=== PATIENT | female | born 1955 | race Caucasian/White ===

== ENCOUNTER 2023-12-16 14:33 | Outpatient (RCR) | payer OTHER, SELFPAY | END 2023-12-16 23:59 | disposition home or self-care (01) | LOC: RPT 14:33 | PROVIDERS: ATTENDING PHYSICIAN Family Medicine | DX: R53.1 Weakness (principal) | CPT/HCPCS: 97110; 97161; 97530 ==

== ENCOUNTER → 2024-01-24 09:05 | Outpatient (REF) | payer OTHER, SELFPAY | LOC: HWRAD 09:05 | PROVIDERS: ATTENDING PHYSICIAN Family Medicine | DX: Z13.820 Encounter for screening for osteoporosis (principal) | CPT/HCPCS: 77080 ==

== ENCOUNTER → 2025-01-01 07:13 | Outpatient (REF) | payer OTHER, SELFPAY | LOC: MRI 3T 07:13 | PROVIDERS: ATTENDING PHYSICIAN Family Medicine | DX: K86.2 Cyst of pancreas (principal) | CPT/HCPCS: 74183; A9575 ==

== ENCOUNTER 2025-04-03 22:29 | Inpatient (IN) | payer OTHER, SELFPAY ==
[2025-04-03 18:13] VITALS: BP 116/51
[2025-04-03 18:47] LABS: Hematocrit 43.6 % (37.0-47.0); Hemoglobin 15.0 g/dL (12.0-16.0); Mean Corp Hgb Conc. 34.4 g/dL (33.0-37.0); Mean Corpuscular Volume 89.9 fL (81.0-99.0); Nucleated Red Blood Cells % 0 %; Platelet Count 240 10^3/uL (130-400); Red Cell Dist. Width 13.4 % (11.5-14.5)
[2025-04-03 19:03] LABS: ALT (SGPT) 42 U/L (0-35); AST (SGOT) 98 U/L (14-36); Albumin 4.1 g/dl (3.5-5.0); Alkaline Phosphatase 67 U/L (38-126); Blood Urea Nitrogen 20 mg/dl (7-17); Calcium 10.1 mg/dl (8.4-10.2); Carbon Dioxide 29 mmol/L (22-30); Chloride 104 mmol/L (98-107); Estimated Creatinine Clearance 91 ml/min; Glucose 119 mg/dl (70-99); Potassium 4.2 mmol/L (3.5-5.1); Sodium 135 mmol/L (135-145); Total Protein 6.6 g/dl (6.3-8.2); eGFR > 60.00
--- NOTE | 2025-04-03 19:06 | ED.GENMED ---
History of Present Illness
<Nicole Noel DO - Last Filed: 04/03/25 20:17>
General
Chief Complaint: Weakness
Time Seen by Provider: 04/03/25 18:56
<STEVAN Corley Last Filed: 04/03/25 21:51>
General
Source: patient
Exam Limitations: none
History of Present Illness
History of Present Illness:
Yemercedes 69-year-old female presents from [facility] where she lives independently. She slid out of bed this morning secondary to generalized weakness. She has been on the floor all day. She brought here by EMS soaked in foul-smelling urine.
Patient was a limited historian but denied any significant injury from the fall she did note some bruising to the right knee. She denies headache chest pain or shortness of breath. No other complaints
Past History
<Lamberto Brownlee PA-C - Last Filed: 04/03/25 21:51>
Past History
ED Past Medical History: Cancer (breast with mastectomy and reconstructive sx. ), HTN, Hypercholesterolemia, NIDDM and Other (cellulitis )
ED Past Surgical History: Other (mastectomy and gastric bypass, breast reconstruction )
Social History
Tobacco: Non-smoker
Alcohol: None
Drug: None
Personal:
Living: with family
Employment: Employed
Family History
Family History: Other (non contributory ) and Adopted
Phy Exam
<Lamberto Brownlee PA-C - Last Filed: 04/03/25 21:51>
Physical Exam
Physical Exam:
General: Well-appearing female no acute distress
HEENT normal cephalic no obvious scalp abrasion or hematoma
Heart: Regular rate and rhythm
Lungs: Clear no wheeze
Abdomen is soft nontender
Musculoskeletal exam: The spine is nontender. She has ecchymosis and some tenderness over the anterior aspect of the right knee without obvious deformity
Course
<Nicole Noel, DO - Last Filed: 04/03/25 20:17>
Orders/Labs/Results
Orders:
Orders
04/03/25 18:40
CPK [Creatine Phosphokinase] Urgent
Complete Blood Count/With Diff Urgent
Comprehensive Metabolic Panel Urgent
04/03/25 19:05
CT Head W/o Iv Contrast Urgent
Comment:
Reason For Exam: fall
CR Knee- Right 4 Or More View* Urgent
Comment:
Reason For Exam: fall
04/03/25 19:28
0.9% Sodium Chloride 1000 ml [Nss] 1,000 ml IV BOLUS
04/03/25 19:49
Urinalysis Reflex To Culture Urgent
Date Specimen was Collected: 04/03/25
Time Specimen was Collected: 19:47
Urine Microscopic Reflex Cult Urgent
Urine Culture Urgent
MICHELLE Source: U
Specimen Description:
Date Specimen was Collected: 04/03/25
Time Specimen was Collected: 19:47
04/03/25 20:11
Cefepime HCl [Maxipime] 1,000 mg IV NOW STA
04/03/25 20:50
Lactic Acid Urgent
Blood Culture Q30M
MICHELLE Source: Blood/Venous
Specimen Description:
04/03/25 20:57
Blood Culture Q30M
MICHELLE Source: Blood/Venous
Specimen Description:
04/03/25 21:37
Sterile Water [Sterile Water For Injection] 10 ml [facility]
04/03/25 21:47
Admit/Transfer Patient As Directed
Co-Sign Provider:
Level of Care: Inpatient admission
Assign to:: Medical/Surgical
Physician / Group: madelin
Diagnosis: uti
Reason for Hospitalization: uti
Expected length of stay greater than two midnights?: Yes
ELOS- Estimated Length of Stay in days: 2
I certify the patient meets the requirements for IP care: Yes
Code Status As Directed
Resuscitation Status: Full Code
PRN Pain Medication Management As Directed
May give lesser potent ordered pain med per pt: Yes
preference::
Protocol:: Medication orders for pain may be administered in a
manner that supports deferring to patient preference
when the pt is:
- Requesting an ordered lesser potent pain medication.
Least to most potent pain medications are defined
as: acetaminophen < NSAID < tramadol < opioids
(morphine, oxycodone, hydromorphone).
- Requesting a lesser dose of the same medication IF
ORDERED.
- Requesting a less intrusive route of administration
if both routes are prescribed by the provider (PO <
IV).
Abnormal Lab Results
04/03/25 04/03/25
18:40 19:49
WBC 14.6 H 10^3/uL
(4.8-10.8)
MPV 10.6 H fL
(7.4-10.4)
Abs Immat Gran (auto) 0.1 H 10^3/uL
(0-0.05)
Absolute Neuts (auto) 12.1 H 10^3/uL
(1.4-6.5)
Absolute Lymphs (auto) 1.1 L 10^3/uL
(1.2-3.4)
Absolute Monos (auto) 1.3 H 10^3/uL
(0.1-0.6)
Neutrophils % 83.3 H %
(42.2-75.2)
Lymphocytes % 7.3 L %
(20.5-51.1)
BUN 20 H mg/dl
(7-17)
Glucose 119 H mg/dl
(70-99)
AST 98 H U/L
(14-36)
ALT 42 H U/L
(0-35)
Creatine Kinase 6552 H U/L
(30-135)
Urine Ketones 3+ A
(Negative)
Ur Occult Blood Reflex 4+ A
(Negative)
Urine Nitrite (Reflex) Positive A
(Negative)
Leukocyte Esterase Rfl 1+ A
(Negative)
Urine RBC 3-6 A /HPF
(0-2)
Urine Bacteria (Reflex) Many A
(Negative)
Urine Albumin (Reflex) 2+ A
(Neg - Trace)
04/03/25 18:40
04/03/25 18:40
Vital Signs
Initial and Last Documented VS:
Initial Vital Signs
Temp Pulse Resp BP Pulse Ox
98.1 F 90 16 116/51 94
04/03/25 18:13 04/03/25 18:13 04/03/25 18:13 04/03/25 18:13 04/03/25 18:13
Last Documented Vital Signs
Temp Pulse Resp BP Pulse Ox
98.1 F 97 18 118/58 95
04/03/25 18:13 04/03/25 20:00 04/03/25 20:00 04/03/25 20:00 04/03/25 20:12
<Lamberto Brownlee PA-C - Last Filed: 04/03/25 21:51>
Orders/Labs/Results
Orders:
Orders
04/03/25 18:40
CPK [Creatine Phosphokinase] Urgent
Complete Blood Count/With Diff Urgent
Comprehensive Metabolic Panel Urgent
04/03/25 19:05
CT Head W/o Iv Contrast Urgent
Comment:
Reason For Exam: fall
CR Knee- Right 4 Or More View* Urgent
Comment:
Reason For Exam: fall
04/03/25 19:28
0.9% Sodium Chloride 1000 ml [Nss] 1,000 ml IV BOLUS
04/03/25 19:49
Urinalysis Reflex To Culture Urgent
Date Specimen was Collected: 04/03/25
Time Specimen was Collected: 19:47
Urine Microscopic Reflex Cult Urgent
Urine Culture Urgent
MICHELLE Source: U
Specimen Description:
Date Specimen was Collected: 04/03/25
Time Specimen was Collected: 19:47
04/03/25 20:11
Cefepime HCl [Maxipime] 1,000 mg IV NOW STA
04/03/25 20:50
Lactic Acid Urgent
Blood Culture Q30M
MICHELLE Source: Blood/Venous
Specimen Description:
04/03/25 20:57
Blood Culture Q30M
MICHELLE Source: Blood/Venous
Specimen Description:
04/03/25 21:37
Sterile Water [Sterile Water For Injection] 10 ml .ROUTE .[facility]
04/03/25 21:47
Admit/Transfer Patient As Directed
Co-Sign Provider:
Level of Care: Inpatient admission
Assign to:: Medical/Surgical
Physician / Group: madelin
Diagnosis: uti
Reason for Hospitalization: uti
Expected length of stay greater than two midnights?: Yes
ELOS- Estimated Length of Stay in days: 2
I certify the patient meets the requirements for IP care: Yes
Code Status As Directed
Resuscitation Status: Full Code
PRN Pain Medication Management As Directed
May give lesser potent ordered pain med per pt: Yes
preference::
Protocol:: Medication orders for pain may be administered in a
manner that supports deferring to patient preference
when the pt is:
- Requesting an ordered lesser potent pain medication.
Least to most potent pain medications are defined
as: acetaminophen < NSAID < tramadol < opioids
(morphine, oxycodone, hydromorphone).
- Requesting a lesser dose of the same medication IF
ORDERED.
- Requesting a less intrusive route of administration
if both routes are prescribed by the provider (PO <
IV).
Abnormal Lab Results
04/03/25 04/03/25
18:40 19:49
WBC 14.6 H 10^3/uL
(4.8-10.8)
MPV 10.6 H fL
(7.4-10.4)
Abs Immat Gran (auto) 0.1 H 10^3/uL
(0-0.05)
Absolute Neuts (auto) 12.1 H 10^3/uL
(1.4-6.5)
Absolute Lymphs (auto) 1.1 L 10^3/uL
(1.2-3.4)
Absolute Monos (auto) 1.3 H 10^3/uL
(0.1-0.6)
Neutrophils % 83.3 H %
(42.2-75.2)
Lymphocytes % 7.3 L %
(20.5-51.1)
BUN 20 H mg/dl
(7-17)
Glucose 119 H mg/dl
(70-99)
AST 98 H U/L
(14-36)
ALT 42 H U/L
(0-35)
Creatine Kinase 6552 H U/L
(30-135)
Urine Ketones 3+ A
(Negative)
Ur Occult Blood Reflex 4+ A
(Negative)
Urine Nitrite (Reflex) Positive A
(Negative)
Leukocyte Esterase Rfl 1+ A
(Negative)
Urine RBC 3-6 A /HPF
(0-2)
Urine Bacteria (Reflex) Many A
(Negative)
Urine Albumin (Reflex) 2+ A
(Neg - Trace)
04/03/25 18:40
04/03/25 18:40
Vital Signs
Initial and Last Documented VS:
Initial Vital Signs
Temp Pulse Resp BP Pulse Ox
98.1 F 90 16 116/51 94
04/03/25 18:13 04/03/25 18:13 04/03/25 18:13 04/03/25 18:13 04/03/25 18:13
Last Documented Vital Signs
Temp Pulse Resp BP Pulse Ox
98.1 F 97 18 118/58 95
04/03/25 18:13 04/03/25 20:00 04/03/25 20:00 04/03/25 20:00 04/03/25 20:12
<Lamberto Brownlee PA-C - Last Filed: 04/03/25 21:51>
MDM/Problems Addressed
Differential Diagnosis Includes:
Generalized weakness slid out of bed with prolonged downtime on the floor. Consider UTI versus rhabdomyolysis versus electrolyte abnormality. Will scan head secondary to potential fall. X-ray right knee pending
<Lamberto Brownlee PA-C - Last Filed: 04/03/25 21:51>
*Pulse Oximetry
SaO2: 95
Oxygen Mode of Delivery: Room air
Patient hypoxic: no
*Critical Care Note
Total Time (30-74mins, 75-104mins- exclusive of procedures): Not Applicable
<Lamberto Brownlee PA-C - Last Filed: 04/03/25 21:51>
Update Note
Update Note:
CT of the head was negative. X-ray of the right knee negative for acute traumatic injury. Labs concerning for rhabdomyolysis with a CPK of 6552. Urinalysis positive for urinary tract infection. Fluids ordered cefepime ordered. Discussed with
the emergency room attending and admitted to hospital
ED Attending Note
<Nicole Noel DO - Last Filed: 04/03/25 20:17>
ED Attending Note
Patient seen and examined by attending physician: Yes
I performed the substantive portion of visit, reviewed & personally made and approve the management plan that is documented in note by myself or ZAY.: Yes
I performed a history and physical exam of patient and discussed management with resident, I reviewed resident's note and agree with documented findings and plan of care.: Yes
ED Attending Note:
69-year-old female with history of diabetes and hypertension presenting from independent living facility after being found down. Patient reportedly fell or slid out of her bed overnight, was found on the floor about 15 hours later. Patient
somnolent on arrival, however arousable and oriented. Patient is a very limited historian, dry on exam. Scattered abrasions on exam. Unclear if patient struck her head.
Vital signs on arrival are normal. On exam, however patient is very dry in appearance with dry mucous membranes. Again patient is somnolent, however yet arousable to tactile and verbal stimuli. She is presently oriented. She does have abrasions
to the forehead, right upper extremity, bilateral knees, moving all extremities equally. In the setting of unknown head strike and essentially altered mental status, CT imaging of the head obtained which is unremarkable. Given that patient had
been allegedly down for about 15 hours, rhabdomyolysis is a consideration with subsequent dehydration. Patient started on IV fluids and labs obtained. Labs are consistent with rhabdomyolysis. No acute kidney injury at this time. Will continue
fluid hydration. Labs also significant for leukocytosis. Currently afebrile, however concern for infection with urinalysis obtained by straight cath, malodor. Suspected UTI, possible sepsis. Will add on cultures and lactic acid.
20:15 - Urine is positive for infection. Will start patient on antibiotics. Plan for admission for possible sepsis from urinary source and acute rhabdomyolysis.
<Lamberto Brownlee PA-C - Last Filed: 04/03/25 21:51>
-
Portions of this chart may have been created with voice recognition software.� Occasional wrong word or��sound alike� substitutions may have occurred due to the inherent limitations of voice recognition software.
Discharge Plan
Departure
Patient Disposition: Admit
Date of Disposition: 04/03/25
Time of Disposition: 21:50
Presentation/result/management discussed w/ accepting MD/DO: Hospitalist
Discharge Problem:
Acute UTI, Rhabdomyolysis
Prescriptions:
No Action
trazodone 150 mg tablet
300 mg PO HSPRN PRN (Reason: sleep)
bupropion HCl 300 mg tablet extended release 24 hr
300 mg PO DAILY
lisdexamfetamine [Vyvanse] 30 mg capsule
30 mg PO BID
levocetirizine 5 mg tablet
5 mg PO DAILY
Vraylar 6 mg capsule
6 mg PO DAILY
citalopram [Celexa] 20 mg Tablet
20 mg PO DAILY
potassium chloride 20 mEq tablet extended release
20 meq PO DAILY
lorazepam 0.5 mg Tablet
0.5 mg PO BIDPRN PRN (Reason: anxiety)
lisinopril 2.5 mg Tablet
2.5 mg PO DAILY
Ozempic 0.25 mg or 0.5 mg (2 mg/3 mL) Pen Injector
0.25 mg SC QWEEK
Rx Instructions:
for 4 weeks
Referrals:
UNKNOWN - PT DOES,NOT KNOW [Family Provider]
Interventions
Interventions:
*Risk Screen - Suicide Last Done: 04/03/25 18:13
*General Assessment Last Done: 04/03/25 18:13
*Neglect/Abuse Screening Last Done: 04/03/25 18:13
*ED- Fall Risk Assessment Last Done: 04/03/25 21:44
*ED COVID-19 Vaccine History Last Done: 04/03/25 21:44
*ED Influenza Vaccine History Last Done: 04/03/25 21:44
ED- Cardiac Assessment Last Done: 04/03/25 18:39
ED- Neurological Assessment Last Done: 04/03/25 21:43
ED- Pulmonary Assessment Last Done: 04/03/25 18:39
Discharge Date and Time
Print Language: SETSWANA
[2025-04-03] MEDS: NSS 1000 IV (19:31)
[2025-04-03 19:57] LABS: Urine Character Clear (Clear)
[2025-04-03 20:00] VITALS: BP 118/58
[2025-04-03 20:10] LABS: Urine Squamous Cell 16-20 /LPF (Few)
[2025-04-03 20:48] VITALS: BP 129/64
[2025-04-03 21:00] VITALS: BP 113/53
[2025-04-03] MEDS: MAXIPIME 1000 MG IV (21:40)
--- NOTE | 2025-04-03 21:50 | HPS.HSE ---
Family Physician
-
Family Physician: NOT KNOW UNKNOWN - PT DOES
Chief Complaint
-
fall,
History of Present Illness
69-year-old female past medical history of recurrent hypokalemia/hypomagnesemia, pancreatic insufficiency, hypertension, diabetes, anxiety/depression/ADHD, hyperlipidemia, gastric bypass, insomnia, breast cancer status post mastectomy and
reconstruction surgery, former smoker, brain aneurysm, history of shingles, osteoarthritis, presenting with weakness and has been on the floor all day. She came in to the emergency room soaked in foul-smelling urine. She complains of pain in the
suprapubic region. She denies any fevers or chills. She denies nausea or vomiting or diarrhea.
Patient denies smoking or alcohol use.
Medical History
Past Medical History
Past Medical History: Reports Other (recurrent hypokalemia/hypomagnesemia, pancreatic insufficiency, hypertension, diabetes, anxiety/depression/ADHD, hyperlipidemia, gastric bypass, insomnia, breast cancer status post mastectomy and reconstruction
surgery, former smoker, brain aneurysm, history of shingles, osteoarthritis)
Past Surgical History: Reports Other (mastectomy and gastric bypass, breast reconstruction ))
Social History
Tobacco: Non-smoker
Alcohol: None
Drug: None
Family History
Family History: Not pertinent
Allergies / Home Medications
Allergies reflects when Allergies were last updated in [facility].
Home Medications with original date entered in [facility]
Allergy/Medication List:
Allergies
Allergy/AdvReac Type Severity Reaction Status Date / Time
No Known Allergies Allergy Verified 04/03/25 18:16
Home Medications
bupropion HCl 300 mg 24 hr tablet, extended release 300 mg PO DAILY Mental Health/Anxiety 09/14/22
cariprazine 6 mg capsule (Vraylar) 6 mg PO DAILY Mental Health/Anxiety 09/14/22
levocetirizine 5 mg tablet 5 mg PO DAILY Allergies 09/14/22
lisdexamfetamine 30 mg capsule (Vyvanse) 30 mg PO BID ADHD 09/14/22
trazodone 150 mg tablet 300 mg PO HSPRN PRN sleep 09/14/22
citalopram 20 mg tablet (Celexa) 20 mg PO DAILY Mental Health/Anxiety 04/03/25
lisinopril 2.5 mg tablet 2.5 mg PO DAILY Blood Pressure 04/03/25
lorazepam 0.5 mg tablet 0.5 mg PO BIDPRN PRN anxiety 04/03/25
potassium chloride 20 mEq tablet,extended release 20 meq PO DAILY Electrolyte Repletion 04/03/25
semaglutide 0.25 mg or 0.5 mg (2 mg/3 mL) subcutaneous pen injector (Ozempic) 0.25 mg SC QWEEK Weight Gain 04/03/25
Review of Systems
-
History Source: Patient
A 12 point ROS was completed and negative except as noted: Yes
Constitutional: Reports No Symptoms
EENT: Reports No Symptoms
Respiratory: Reports No Symptoms
Cardiac: Reports No Symptoms
Abdomen/GI: Reports See HPI
: Reports See HPI
Musculoskeletal: Reports No Symptoms
Skin: Reports No Symptoms
Neurological: Reports No Symptoms
Endocrine: Reports No Symptoms
Hematologic/Lymphatic: Reports No Symptoms
Psych: Reports No Symptoms
Physical Exam
Vital Signs
Vital Signs
Temp Pulse Resp BP Pulse Ox
98.1 F 97 18 118/58 95
04/03/25 18:13 04/03/25 20:00 04/03/25 20:00 04/03/25 20:00 04/03/25 20:12
Physical Exam
General: Well Developed, Well Nourished and No Apparent Distress
HEENT: NormoCephalic, Moist mucous membranes and Atraumatic
Respiratory: Clear
Cardiac: S1/S2 and Regular Rhythm; No Murmur or Rub
GI: Soft, Non Tender, Non Distended and Normal Bowel Sounds; No Organomegaly
Rectal: Deferred by Provider
Musculoskeletal: No Clubbing, No Cyanosis and No Edema
Skin: No Rash
Neuro: Nonfocal/grossly intact
Laboratory Results
-
04/03/25 18:40
04/03/25 18:40
Laboratory Results
Lactic Acid 1.8 mmol/L (0.7-2.0) 04/03/25 20:50
Total Bilirubin 0.7 mg/dl (0.2-1.3) 04/03/25 18:40
AST 98 U/L (14-36) H 04/03/25 18:40
ALT 42 U/L (0-35) H 04/03/25 18:40
Alkaline Phosphatase 67 U/L (38-126) 04/03/25 18:40
Data Reviewed
-
Lab Data: Labs Reviewed by me
Old Records: Reviewed
Impression/Plan
-
IMPRESSION:
PLAN:
# Urinary tract infection
-Appears hypovolemic
- Leukocytosis of 14
- Urinalysis positive nitrates, +1 leukocyte esterase, 6-10 WBC not strongly convincing for UTI
-Blood cultures pending
- Ceftriaxone
# Acute rhabdomyolysis
-CPK 6500, recheck in the morning
- Transaminitis from this
- IV fluids
# Right knee pain from fall
# Prior right knee replacement
- Knee x-ray shows no acute periprosthetic fracture
# Chronic infarct of right internal capsule
-CT head shows no acute intracranial hemorrhage or scalp soft tissue hematoma
- Would benefit from aspirin
Recurrent hypokalemia/hypomagnesemia secondary to pancreatic insufficiency
Essential hypertension
- Continue lisinopril
Type 2 diabetes
- On Ozempic
- Insulin sliding scale
Anxiety/depression/ADHD
- Continue Vraylar, Ativan, Vyvanse, bupropion, Celexa, trazodone
Hyperlipidemia
History of gastric bypass
Insomnia
Breast cancer status postmastectomy and reconstructive surgery
Former smoker
History of brain aneurysm
History of shingles
Osteoarthritis
Full code
DVT prophylaxis�heparin
Regular diet
[2025-04-04 00:10] VITALS: BP 126/54; BMI 28.9
--- NOTE | 2025-04-04 00:55 | TRANSFER ---
Pt arrived from ED by stretcher. roll over loader to bed. Alert and Oriented x 3 with some drowsiness. VSS. Purewick changed and in place. Call yousif within reach. Will continue to monitor.
[2025-04-04] MEDS: NSS 1000 IV ×3 (01:00→17:26)
[2025-04-04] MEDS: TYLENOL 650 MG PO ×2 (03:46→23:04)
[2025-04-04 06:26] LABS: Hematocrit 37.3 % (37.0-47.0); Hemoglobin 12.6 g/dL (12.0-16.0); Mean Corp Hgb Conc. 33.8 g/dL (33.0-37.0); Mean Corpuscular Volume 89.4 fL (81.0-99.0); Nucleated Red Blood Cells % 0 %; Platelet Count 206 10^3/uL (130-400); Red Cell Dist. Width 13.5 % (11.5-14.5)
[2025-04-04 06:33] LABS: ALT (SGPT) 45 U/L (0-35); AST (SGOT) 100 U/L (14-36); Albumin 3.2 g/dl (3.5-5.0); Alkaline Phosphatase 56 U/L (38-126); Blood Urea Nitrogen 15 mg/dl (7-17); Calcium 9.1 mg/dl (8.4-10.2); Carbon Dioxide 26 mmol/L (22-30); Chloride 107 mmol/L (98-107); Estimated Creatinine Clearance 89 ml/min; Glucose 93 mg/dl (70-99); Potassium 3.3 mmol/L (3.5-5.1); Sodium 135 mmol/L (135-145); Total Protein 5.5 g/dl (6.3-8.2); eGFR > 60.00
[2025-04-04 07:24] VITALS: BP 106/52
--- NOTE | 2025-04-04 07:34 | PTCARENOTE ---
pct found 32capsules of prescribed vyvanse at patients bedside. Entire bottle hand delivered to pharmacy. Medication at pharmacy for holding. Propper documentation obtained.
[2025-04-04 08:03] LABS: Glucose - Point of Care 73 mg/dl (70-99)
[2025-04-04] MEDS: NOVOLOG FLEXPEN-LOW RESISTANCE SC ×2 (08:31→12:40)
[2025-04-04] MEDS: KCL 40 MEQ PO (08:55)
[2025-04-04] MEDS: CLARITIN 10 MG PO (08:56)
[2025-04-04] MEDS: KCL 20 MEQ PO (08:56)
[2025-04-04] MEDS: CELEXA 20 MG PO (08:56)
[2025-04-04] MEDS: ZESTRIL 2.5 MG PO (08:58)
[2025-04-04] MEDS: WELLBUTRIN XL (24 hour extended release) 300 MG PO (08:58)
[2025-04-04] MEDS: HEPARIN 5000 UNITS SC ×2 (09:00→20:23)
[2025-04-04 09:40] LABS: Glycohemoglobin (HgbA1c) 5.6 % (4.0-5.9)
--- NOTE | 2025-04-04 10:20 | W.PN.HOSP.TC ---
Addendum entered and electronically signed by Jef Torres DO 04/05/25 12:05:
Traumatic Rhabdomyolysis
Original Note:
Today's Communication/Plan
-
Continue IV fluids
Monitor CPK, renal function test, LFT
Monitor urine output
Continue Rocephin
Pending blood/urine cultures
Assessment / Plan
Assessment / Plan
ASSESSMENT:
A 69-year-old female with a past medical history of �recurrent hypokalemia/hypomagnesemia, pancreatic insufficiency, hypertension, diabetes, anxiety/depression/ADHD, hyperlipidemia, gastric bypass, insomnia, breast cancer status post mastectomy and
reconstruction surgery, former smoker, brain aneurysm, history of shingles, osteoarthritis who presented to the ED with generalized weakness. Patient fell from her recliner and was unable to get up yesterday. She also endorses suprapubic pain, and
presented to the ER soaked and foul-smelling urine. No fever, chills, nausea, vomiting, diarrhea or any other symptoms.
Head CT 04/03/2025:
1. No CT evidence for acute intracranial hemorrhage or scalp soft tissue hematoma.
2. Severe white matter leukoaraiosis in the periventricular frontal lobes and internal capsules.
3. 6 mm chronic infarct in the genu of the right internal capsule.
4. Mild diffuse cerebral and cerebellar volume loss.
5. Large osseous defect in the anterior nasal septum.
XR knee L 04/03/2025:
Right total knee arthroplasty in place without radiographic evidence for acute periprosthetic fracture or hardware loosening.
PLAN:
# Urinary tract infection
UA shows positive nitrites, 1+ leukocyte esterase, 6-10 WBCs --> possible early infection
WBC count 14
Started on Rocephin 04/04/25
Pending blood/urine cultures
# Acute rhabdomyolysis
# Elevated liver function tests
# Increased BUN/CR ratio
CPK 6500 04/03/25, repeat CPK pending
AST/ALT 98/42; 100/45 today 04/04/25, indicating muscle injury
BUN 22, creat 0.6; BUN/CR ratio 37.1, prerenal cause since ratio >20:1- most likely dehydration
Continue IV fluids
Monitor urine output. Can consider bicarbonate infusion if urine output is low or creatinine is rising to prevent myoglobin nephropathy
# Right knee pain likely from mechanical fall
# History of prior right knee replacement�
XR knee shows no acute abnormalities
PT consulted
# Chronic infarct of right internal capsule
# History of brain aneurysm
CT shows no acute findings
# Recurrent hypokalemia/ hypomagnesemia
Likely secondary to pancreatic insufficiency
K 3.3 04/04/25, repleted with 40 mEq
Monitor BMP
# Essential HTN
Continue lisinopril
# Anxiety
#Depression
#ADHD
Continue psych medications
# Hyperlipidemia
# History of breast cancer, postmastectomy and reconstructive surgery
# Insomnia
# History of gastric bypass surgery�
Anticipated Discharge: 24 - 48 hours
Subjective/Interval History
-
Date of Service: April 04, 2025
Patient evaluated at bedside this morning. Patient states she fell out of her recliner yesterday due to generalized weakness and could not get up because 'everything fell on her.' She states that she feels a little better than yesterday. No new
complaints.
Objective Data
-
Labs:
Laboratory Results
04/04/25
05:33
WBC 10.6
Hgb 12.6
Hct 37.3
Plt Count 206
Sodium 135
Potassium 3.3 L
Chloride 107
Carbon Dioxide 26
BUN 15
Creatinine 0.5 L
Glucose 93
Calcium 9.1
Total Bilirubin 0.6
AST 100 H
ALT 45 H
Alkaline Phosphatase 56
Vital Signs:
Vital Signs
Temp Pulse Resp BP Pulse Ox
98 F 78 18 106/52 96
04/04/25 07:24 04/04/25 07:24 04/04/25 07:24 04/04/25 07:24 04/04/25 07:24
Review of Systems
-
History Source: Patient
Constitutional: Reports Fatigue
EENT: Reports No Symptoms Reported
Respiratory: Reports No Symptoms
Cardiac: Reports No Symptoms
Abdomen/GI: Reports Other (Suprapubic pain)
Breast: Reports No Symptoms
Musculoskeletal: Reports No Symptoms
Skin: Reports No Symptoms
Endocrine: Reports No Symptoms
Hematologic / Lymphatic: Reports No Symptoms
Physical Exam
-
General: Well Developed, Well Nourished, No Apparent Distress and Comfortable
HEENT: Normocephalic, Atraumatic, Moist Mucous Membranes and Anicteric
Respiratory: Clear to Auscultation
Cardiac: Regular Rhythm and S1/S2
GI: Soft, Nontender, Nondistended, Normal Bowel Sounds and No Hepatosplenomegaly
Musculoskeletal: No Clubbing, No Cyanosis, Edema, Right Lower Extrem and Edema, Left Lower Extrem
Skin: Warm
Neuro: Awake
Psych: Calm
Data Reviewed
-
CT Scan: Report Reviewed by me and Discussed with Physician
Labs: Labs Reviewed by me, Discussed with Physician and Discussed with Patient
Old Records: Reviewed
[2025-04-04] MEDS: ROCEPHIN 1000 MG IV (11:17)
[2025-04-04] MEDS: STERILE WATER FOR INJECTION 10 ML IV (11:17)
[2025-04-04 12:27] LABS: Glucose - Point of Care 69 mg/dl (70-99)
[2025-04-04 12:43] LABS: Glucose - Point of Care 90 mg/dl (70-99)
[2025-04-04 12:54] VITALS: BP 121/59; PULSE 91; O2SAT 95
[2025-04-04 13:31] VITALS: BP 121/59; PULSE 86; O2SAT 95
[2025-04-04 14:38] VITALS: BP 116/50
[2025-04-04 17:30] LABS: Glucose - Point of Care 203 mg/dl (70-99)
[2025-04-04] MEDS: NOVOLOG FLEXPEN-LOW RESISTANCE 2 UNITS SC (17:41)
[2025-04-04] MEDS: NON-FORMULARY ITEM PO (20:23)
[2025-04-04 20:52] LABS: Glucose - Point of Care 137 mg/dl (70-99)
[2025-04-04] MEDS: DESYREL 300 MG PO (23:06)
[2025-04-04 23:25] VITALS: BP 126/63
[2025-04-05] MEDS: NSS 1000 IV ×3 (01:36→20:34)
[2025-04-05 03:18] LABS: Glucose - Point of Care 98 mg/dl (70-99)
[2025-04-05 06:44] LABS: Hematocrit 34.8 % (37.0-47.0); Hemoglobin 11.6 g/dL (12.0-16.0); Mean Corp Hgb Conc. 33.3 g/dL (33.0-37.0); Mean Corpuscular Volume 91.1 fL (81.0-99.0); Nucleated Red Blood Cells % 0 %; Platelet Count 176 10^3/uL (130-400); Red Cell Dist. Width 14.0 % (11.5-14.5)
[2025-04-05 07:21] VITALS: BP 115/50
--- NOTE | 2025-04-05 07:40 | W.PN.HOSP.TC ---
Today's Communication/Plan
-
EKG for QTc, will decide on appropriate antibiotic after
IV fluids
Trend CPK, BMP
Assessment / Plan
Assessment / Plan
ASSESSMENT:
A 69-year-old female with a past medical history of �recurrent hypokalemia/hypomagnesemia, pancreatic insufficiency, hypertension, diabetes, anxiety/depression/ADHD, hyperlipidemia, gastric bypass, insomnia, breast cancer status post mastectomy and
reconstruction surgery, former smoker, brain aneurysm, history of shingles, osteoarthritis who presented to the ED with generalized weakness. Patient fell from her recliner and was unable to get up yesterday. She also endorses suprapubic pain, and
presented to the ER soaked and foul-smelling urine. No fever, chills, nausea, vomiting, diarrhea or any other symptoms.
Head CT 04/03/2025:
1. No CT evidence for acute intracranial hemorrhage or scalp soft tissue hematoma.
2. Severe white matter leukoaraiosis in the periventricular frontal lobes and internal capsules.
3. 6 mm chronic infarct in the genu of the right internal capsule.
4. Mild diffuse cerebral and cerebellar volume loss.
5. Large osseous defect in the anterior nasal septum.
XR knee L 04/03/2025:
Right total knee arthroplasty in place without radiographic evidence for acute periprosthetic fracture or hardware loosening.
PLAN:
# Urinary tract infection
UA shows positive nitrites, 1+ leukocyte esterase, 6-10 WBCs --> possible early infection
WBC count 14 on admission, decreased to 6.4 04/05/25
Started on Rocephin 04/04/25
Urine culture showed pansensitive E. coli. Will obtain EKG to see QTc before deciding antibiotic choice.
# Acute rhabdomyolysis
# Elevated liver function tests
# Increased BUN/CR ratio
# Flank pain
CPK 6500 04/03/25, decreased to 1547 today
AST/ALT 98/42 on admission, 81/48 04/05/25
BUN 22, creat 0.6; BUN/CR ratio 37.1, prerenal cause since ratio >20:1- most likely dehydration
Flank pain likely due to rhabdo, monitor.
Continue IV fluids
Monitor urine output
# Right knee pain likely from mechanical fall
# History of prior right knee replacement�
XR knee shows no acute abnormalities
PT consulted: rec SNF, but patient likely wants visiting nurse
# Chronic infarct of right internal capsule
# History of brain aneurysm
CT shows no acute findings
# Recurrent hypokalemia/ hypomagnesemia
Likely secondary to pancreatic insufficiency
K 3.3 04/04/25, repleted with 40 mEq, repeat 3.7 on 04/05
Monitor BMP
# Essential HTN
Continue lisinopril
# Anxiety
#Depression
#ADHD
Continue psych medications
# Hyperlipidemia
# History of breast cancer, postmastectomy and reconstructive surgery
# Insomnia
# History of gastric bypass surgery�
Anticipated Discharge: 24 - 48 hours
Subjective/Interval History
-
Date of Service: April 05, 2025
Patient evaluated at bedside this morning. She states she feels well, except some bilateral flank pain. No new symptoms. Patient would not like to go to a SNF, and would rather prefer home services. She lives alone at home.
Objective Data
-
Labs:
Laboratory Results
04/05/25
06:27
WBC 6.4
Hgb 11.6 L
Hct 34.8 L
Plt Count 176
Sodium Pending
Potassium Pending
Chloride Pending
Carbon Dioxide Pending
BUN Pending
Creatinine Pending
Glucose Pending
Calcium Pending
Total Bilirubin Pending
AST Pending
ALT Pending
Alkaline Phosphatase Pending
Vital Signs:
Vital Signs
Temp Pulse Resp BP Pulse Ox
98.1 F 84 18 115/50 95
04/05/25 07:21 04/05/25 07:21 04/05/25 07:21 04/05/25 07:21 04/05/25 07:21
I&O
04/04/25 04/05/25 04/06/25
06:59 06:59 06:59
Intake Total 840 / 840
Balance 840 / 840
Review of Systems
-
History Source: Patient
Constitutional: Reports No Symptoms
EENT: Reports No Symptoms Reported
Respiratory: Reports No Symptoms
Cardiac: Reports No Symptoms
Abdomen/GI: Reports Other (flank pain)
Genitourinary: Reports No Symptoms
Musculoskeletal: Reports No Symptoms
Skin: Reports No Symptoms
Neuro: Reports No Symptoms
Endocrine: Reports No Symptoms
Hematologic / Lymphatic: Reports No Symptoms
Physical Exam
-
General: Well Developed, Well Nourished, No Apparent Distress, Comfortable and Conversant
HEENT: Normocephalic, Atraumatic, Moist Mucous Membranes and Anicteric
Respiratory: Clear to Auscultation
Cardiac: Regular Rhythm and S1/S2
GI: Soft, Nontender, Nondistended and Normal Bowel Sounds
Musculoskeletal: No Clubbing, No Cyanosis and No Edema
Skin: Warm
Neuro: Awake and AO x 3
Psych: Calm and Intact Judgement/Insight
Data Reviewed
-
Labs: Labs Reviewed by me, Discussed with Physician and Discussed with Patient
Old Records: Reviewed
[2025-04-05 07:41] LABS: Glucose - Point of Care 99 mg/dl (70-99)
[2025-04-05] MEDS: NOVOLOG FLEXPEN-LOW RESISTANCE SC ×3 (07:44→17:31)
[2025-04-05 07:49] LABS: ALT (SGPT) 48 U/L (0-35); AST (SGOT) 81 U/L (14-36); Albumin 2.8 g/dl (3.5-5.0); Alkaline Phosphatase 49 U/L (38-126); Blood Urea Nitrogen 11 mg/dl (7-17); Calcium 8.6 mg/dl (8.4-10.2); Carbon Dioxide 24 mmol/L (22-30); Chloride 112 mmol/L (98-107); Estimated Creatinine Clearance 89 ml/min; Glucose 88 mg/dl (70-99); Magnesium 1.7 mg/dl (1.6-2.3); Potassium 3.7 mmol/L (3.5-5.1); Sodium 136 mmol/L (135-145); Total Protein 5.0 g/dl (6.3-8.2); eGFR > 60.00
[2025-04-05] MEDS: NON-FORMULARY ITEM 30 MG PO (08:00)
[2025-04-05] MEDS: TYLENOL 650 MG PO (08:01)
[2025-04-05] MEDS: HEPARIN 5000 UNITS SC ×2 (08:02→20:34)
[2025-04-05] MEDS: KCL 20 MEQ PO (08:02)
[2025-04-05] MEDS: CELEXA 20 MG PO (08:02)
[2025-04-05] MEDS: WELLBUTRIN XL (24 hour extended release) 300 MG PO (08:02)
[2025-04-05] MEDS: ZESTRIL 2.5 MG PO (08:02)
[2025-04-05] MEDS: CLARITIN 10 MG PO (08:02)
[2025-04-05] MEDS: STERILE WATER FOR INJECTION 10 ML IV (09:48)
[2025-04-05] MEDS: ROCEPHIN 1000 MG IV (09:49)
--- NOTE | 2025-04-05 11:03 | PN.CDI ---
CDI
- -
CDI:
Physician Documentation Request
Admit Date: 04/03/25 22:29
Dear Doctor Brian/Resident ,
Please review the following and provide your response in the progress notes.
Clinical Indicators:
Pt admitted with Rhabdomyolysis/UTI
Documented per ED, ' Given that patient had been allegedly down for about 15 hours, rhabdomyolysis is a consideration with subsequent dehydration. Patient started on IV fluids and labs obtained. Labs are consistent with rhabdomyolysis. ...'
Progress note 04/04, ' Status post fall due to weakness with prolonged downtime as she was not able to get herself up, subsequently developed rhabdomyolysis Continuing aggressive IV fluids, renal function within normal limits...'
Please provide the suspected type/etiology of the documented Rhabdomyolysis:
Traumatic Rhabdomyolysis
Nontraumatic Rhabdomyolysis
Other ( please specify)
Use of terms such as suspected, likely, concern for, or probable (associated with a specific diagnosis that is being evaluated, monitored, or treated as if it exists) are acceptable and can be coded in the inpatient setting, when documented at the
time of discharge.
Thank you,
Analia Schmidt RN
CDI Specialist
[facility]
Please use your independent medical judgment in providing your response.
[2025-04-05 11:35] LABS: Glucose - Point of Care 144 mg/dl (70-99)
--- NOTE | 2025-04-05 13:14 | CM ---
Initial assessment completed with patient who lives in a 2nd floor apartment at [facility] in elevator building, no steps to enter. [employer] patient was independent in ADL's and ambulation, drives. Has a SC. No other DME. No HC POA. No VA benefits. No
psychiatric hospitalizations. PCP is Dr. Anette Garcia. Pharmacy is [facility] on [phone] in [place]. Discharge POC: Anticipate Home with no needs.
[2025-04-05 15:18] VITALS: BP 102/63
[2025-04-05 16:06] VITALS: BP 124/59; PULSE 87; O2SAT 97
[2025-04-05 16:09] VITALS: BP 124/59; O2SAT 97
[2025-04-05 16:35] LABS: Glucose - Point of Care 65 mg/dl (70-99)
[2025-04-05 17:22] LABS: Glucose - Point of Care 138 mg/dl (70-99)
[2025-04-05] MEDS: AUGMENTIN 875 MG/125 MG 1 TABLET PO (20:32)
[2025-04-05] MEDS: DESYREL 300 MG PO (20:44)
[2025-04-05] MEDS: NON-FORMULARY ITEM PO (21:05)
[2025-04-05 21:21] LABS: Glucose - Point of Care 88 mg/dl (70-99)
[2025-04-05 23:04] VITALS: BP 123/55
[2025-04-06 02:54] LABS: Glucose - Point of Care 94 mg/dl (70-99)
[2025-04-06] MEDS: TYLENOL 650 MG PO (03:21)
[2025-04-06] MEDS: NSS 1000 IV ×3 (05:55→23:28)
[2025-04-06 07:20] VITALS: BP 137/67
[2025-04-06 07:53] LABS: Hematocrit 33.9 % (37.0-47.0); Hemoglobin 11.4 g/dL (12.0-16.0); Mean Corp Hgb Conc. 33.6 g/dL (33.0-37.0); Mean Corpuscular Volume 90.4 fL (81.0-99.0); Nucleated Red Blood Cells % 0 %; Platelet Count 165 10^3/uL (130-400); Red Cell Dist. Width 14.2 % (11.5-14.5)
[2025-04-06 07:57] LABS: Glucose - Point of Care 94 mg/dl (70-99)
[2025-04-06 08:22] LABS: ALT (SGPT) 56 U/L (0-35); AST (SGOT) 83 U/L (14-36); Albumin 2.9 g/dl (3.5-5.0); Alkaline Phosphatase 48 U/L (38-126); Blood Urea Nitrogen 7 mg/dl (7-17); Calcium 8.7 mg/dl (8.4-10.2); Carbon Dioxide 24 mmol/L (22-30); Chloride 112 mmol/L (98-107); Estimated Creatinine Clearance 89 ml/min; Glucose 83 mg/dl (70-99); Magnesium 1.7 mg/dl (1.6-2.3); Potassium 4.1 mmol/L (3.5-5.1); Sodium 135 mmol/L (135-145); Total Protein 5.2 g/dl (6.3-8.2); eGFR > 60.00
[2025-04-06] MEDS: NOVOLOG FLEXPEN-LOW RESISTANCE SC ×3 (09:04→16:48)
[2025-04-06] MEDS: KCL 20 MEQ PO (09:05)
[2025-04-06] MEDS: AUGMENTIN 875 MG/125 MG 1 TABLET PO ×2 (09:05→20:18)
[2025-04-06] MEDS: CELEXA 20 MG PO (09:05)
[2025-04-06] MEDS: HEPARIN 5000 UNITS SC ×2 (09:05→20:18)
[2025-04-06] MEDS: CLARITIN 10 MG PO (09:05)
[2025-04-06] MEDS: ZESTRIL 2.5 MG PO (09:06)
[2025-04-06] MEDS: WELLBUTRIN XL (24 hour extended release) 300 MG PO (09:06)
[2025-04-06] MEDS: NON-FORMULARY ITEM 30 MG PO (09:11)
[2025-04-06 11:32] LABS: Glucose - Point of Care 100 mg/dl (70-99)
--- NOTE | 2025-04-06 12:42 | W.PN.HOSP.TC ---
Today's Communication/Plan
-
Assessment / Plan
Assessment / Plan
General: No Apparent Distress, comfortable, conversant
HEENT: NormoCephalic, dry mucous membranes, Atraumatic
Respiratory: Clear and Non Labored Respirations
Cardiac: S1/S2 and Regular Rhythm; No Rub or Gallop
GI: Soft, normal bowel sounds
Musculoskeletal: No Edema, no deformity
Skin: Warm and dry
: No Lock[place]
Neuro: Awake and alert, Nonfocal/grossly intact
Psych: Calm and cooperative
ASSESSMENT:
A 69-year-old female with a past medical history of �recurrent hypokalemia/hypomagnesemia, pancreatic insufficiency, hypertension, diabetes, anxiety/depression/ADHD, hyperlipidemia, gastric bypass, insomnia, breast cancer status post mastectomy and
reconstruction surgery, former smoker, brain aneurysm, history of shingles, osteoarthritis who presented to the ED with generalized weakness. Patient fell from her recliner and was unable to get up yesterday. She also endorses suprapubic pain, and
presented to the ER soaked and foul-smelling urine. No fever, chills, nausea, vomiting, diarrhea or any other symptoms.
Head CT 04/03/2025:
1. No CT evidence for acute intracranial hemorrhage or scalp soft tissue hematoma.
2. Severe white matter leukoaraiosis in the periventricular frontal lobes and internal capsules.
3. 6 mm chronic infarct in the genu of the right internal capsule.
4. Mild diffuse cerebral and cerebellar volume loss.
5. Large osseous defect in the anterior nasal septum.
XR knee L 04/03/2025:
Right total knee arthroplasty in place without radiographic evidence for acute periprosthetic fracture or hardware loosening.
PLAN:
# Urinary tract infection
UA shows positive nitrites, 1+ leukocyte esterase, 6-10 WBCs
WBC count 14 on admission, decreased to 6.4 04/05/25
Started on Rocephin 04/04/25, have now transitioned to Augmentin based on cultures with plan to complete a 5-day course
# Acute rhabdomyolysis
# Increased BUN/CR ratio
# Flank pain
CPK 6500 04/03/25, decreased to 1547 04/05, has somewhat plateaued around 1400 today 04/06
Continuing IV fluids until CK at least less than 1000
Renal function within normal limits
Will check ESR, CRP, TSH
BUN 22, creat 0.6; BUN/CR ratio 37.1, prerenal cause since ratio >20:1- most likely dehydration
Flank pain likely due to rhabdo, monitor.
Continue IV fluids
Monitor urine output
# Elevated liver function tests
AST/ALT 98/42 on admission, 81/48 04/05/25
Continue to monitor
# Right knee pain likely from mechanical fall
# History of prior right knee replacement�
XR knee shows no acute abnormalities
PT consulted: rec SNF, but patient likely wants visiting nurse
# Chronic infarct of right internal capsule
# History of brain aneurysm
CT shows no acute findings
# Recurrent hypokalemia/ hypomagnesemia
Likely secondary to pancreatic insufficiency
K 3.3 04/04/25, repleted
Monitor BMP
# Essential HTN
Continue lisinopril
# Anxiety
#Depression
#ADHD
Continue psych medications
# Hyperlipidemia
# History of breast cancer, postmastectomy and reconstructive surgery
# Insomnia
# History of gastric bypass surgery�
Anticipated Discharge: 24 - 48 hours
Subjective/Interval History
-
Date of Service: April 06, 2025
Patient was seen and examined at bedside this morning. No acute distress. Remains on IV fluids with plateaued CK level around 1400.
Objective Data
-
Labs:
Laboratory Results
04/06/25
07:06
WBC 5.6
Hgb 11.4 L
Hct 33.9 L
Plt Count 165
Sodium 135
Potassium 4.1
Chloride 112 H
Carbon Dioxide 24
BUN 7
Creatinine 0.5 L
Glucose 83
Calcium 8.7
Total Bilirubin 0.4
AST 83 H
ALT 56 H
Alkaline Phosphatase 48
Vital Signs:
Vital Signs
Temp Pulse Resp BP Pulse Ox
97.9 F 85 16 137/67 97
04/06/25 07:20 04/06/25 07:20 04/06/25 07:20 04/06/25 07:20 04/06/25 07:20
I&O
04/05/25 04/06/25 04/07/25
06:59 06:59 06:59
Intake Total 840 / 840 2160 / 2160
Balance 840 / 840 2160 / 2160
Review of Systems
-
History Source: Patient
All other systems: Reviewed and negative
Musculoskeletal: Reports Muscle Pain
Physical Exam
-
General: No Apparent Distress
--- NOTE | 2025-04-06 13:23 | CM ---
Met with patient
CM consult completed - VN
options reviewed - prefers [facility] - referral entered in [facility]
PT rec Home health
PLAN: Home with [facility] when stable
[2025-04-06 15:05] LABS: C-Reactive Protein 37.40 mg/L (0.0-10.00)
[2025-04-06 15:19] VITALS: BP 125/60
[2025-04-06 16:20] LABS: Glucose - Point of Care 76 mg/dl (70-99)
[2025-04-06] MEDS: ATIVAN 0.5 MG PO (20:18)
[2025-04-06] MEDS: NON-FORMULARY ITEM PO (20:33)
[2025-04-06 20:34] LABS: Glucose - Point of Care 114 mg/dl (70-99)
[2025-04-06] MEDS: DESYREL 300 MG PO (23:24)
[2025-04-07] MEDS: TYLENOL 650 MG PO (03:00)
[2025-04-07 07:27] LABS: Glucose - Point of Care 87 mg/dl (70-99)
[2025-04-07] MEDS: NSS 1000 IV (07:40)
[2025-04-07] MEDS: NOVOLOG FLEXPEN-LOW RESISTANCE SC ×2 (07:40→13:07)
[2025-04-07] MEDS: HEPARIN 5000 UNITS SC (07:44)
[2025-04-07] MEDS: KCL 20 MEQ PO (07:45)
[2025-04-07] MEDS: AUGMENTIN 875 MG/125 MG 1 TABLET PO (07:45)
[2025-04-07] MEDS: ZESTRIL 2.5 MG PO (07:45)
[2025-04-07] MEDS: WELLBUTRIN XL (24 hour extended release) 300 MG PO (07:45)
[2025-04-07] MEDS: CLARITIN 10 MG PO (07:45)
[2025-04-07] MEDS: CELEXA 20 MG PO (07:47)
[2025-04-07] MEDS: NON-FORMULARY ITEM 30 MG PO (07:56)
[2025-04-07 08:29] VITALS: BP 136/72
[2025-04-07 12:01] LABS: Hematocrit 39.8 % (37.0-47.0); Hemoglobin 12.5 g/dL (12.0-16.0); Mean Corp Hgb Conc. 31.4 g/dL (33.0-37.0); Mean Corpuscular Volume 95.4 fL (81.0-99.0); Nucleated Red Blood Cells % 0 %; Platelet Count 197 10^3/uL (130-400); Red Cell Dist. Width 14.2 % (11.5-14.5)
[2025-04-07 12:13] LABS: Glucose - Point of Care 99 mg/dl (70-99)
[2025-04-07 12:30] LABS: ALT (SGPT) 66 U/L (0-35); AST (SGOT) 84 U/L (14-36); Albumin 3.7 g/dl (3.5-5.0); Alkaline Phosphatase 58 U/L (38-126); Blood Urea Nitrogen 5 mg/dl (7-17); Calcium 9.5 mg/dl (8.4-10.2); Carbon Dioxide 27 mmol/L (22-30); Chloride 108 mmol/L (98-107); Estimated Creatinine Clearance 89 ml/min; Glucose 91 mg/dl (70-99); Magnesium 1.5 mg/dl (1.6-2.3); Potassium 4.7 mmol/L (3.5-5.1); Sodium 137 mmol/L (135-145); Total Protein 6.2 g/dl (6.3-8.2); eGFR > 60.00
[2025-04-07] MEDS: MAGNESIUM SULFATE 100 IV (13:21)
[2025-04-07] MEDS: SOLU-MEDROL PF 40 MG IV (13:22)
--- NOTE | 2025-04-07 13:40 | W.DCSUMMARY ---
Discharge Summary
Discharge Data
Date of Admission: 04/03/25
Date of Discharge: 04/07/25
Total time spent discharging patient (in min): 45
-
Pending Results: No
Hospital Course
Ms. Carlson is a 69-year-old female with a medical history of �recurrent hypokalemia/hypomagnesemia, pancreatic insufficiency, hypertension, diabetes, anxiety/depression/ADHD, hyperlipidemia, gastric bypass, insomnia, breast cancer status post
mastectomy and reconstruction surgery, former smoker, brain aneurysm, history of shingles, and osteoarthritis who presented to the ED with generalized weakness. She fell from her recliner and was unable to get up for several hours. She also
endorsed suprapubic pain, and presented to the ER soaked and foul-smelling urine. No fever, chills, nausea, vomiting, diarrhea or any other symptoms. Labs revealed urinary tract infection. Rhabdomyolysis. She was started on antibiotics and IV
fluids and admitted for further evaluation and management.
She made significant clinical improvement over the first 24 hours. Her creatinine kinase levels gradually improved over 72 hours at which time she was able to be discharged to home. Her AST and ALT were slightly elevated likely due to
rhabdomyolysis, her alk phos and bilirubin levels were normal. Her home potassium chloride supplementation was held at the time of discharge due to serum potassium levels at the upper range of normal on the day of discharge. Her Ozempic was also
held at the time of discharge and she should follow-up with her prescribing provider prior to resuming this medication in case it had been contributing to her rhabdomyolysis. She was instructed to repeat lab work in 2 to 3 days after hospital
discharge to monitor her kidney function, electrolytes, CK level, and liver function tests. If CK levels do not return to normal further workup should be pursued including possible autoimmune evaluation for polymyositis. She was instructed to
drink plenty of fluids after hospital discharge. She was given a prescription for 1 more day of Augmentin to complete a total 5-day course of antibiotics for urinary tract infection based on urine cultures growing pansensitive E. coli.
General: No Apparent Distress, comfortable, conversant
HEENT: NormoCephalic, dry mucous membranes, Atraumatic
Respiratory: Clear and Non Labored Respirations
Cardiac: S1/S2 and Regular Rhythm; No Rub or Gallop
GI: Soft, normal bowel sounds
Musculoskeletal: No Edema, no deformity
Skin: Warm and dry
: No [place]
Neuro: Awake and alert, Nonfocal/grossly intact
Psych: Calm and cooperative
Discharge Plan
-
Patient Disposition: Home with Home Care
Discharge Diagnosis/Procedures: UTI, traumatic rhabdomyolysis
Blood Work: Creatinine kinase
basic metabolic panel
Liver function test
autoimmune workup for polymyositis if creatinine kinase level does not completely resolve
Activity Restrictions/Additional Instructions:
You were admitted for treatment of rhabdomyolysis, which is a breakdown of your muscles that release muscle cell products into your bloodstream. Those muscle cell products could potentially hurt your kidneys, which is why you were kept in the
hospital and given IV fluids with frequent monitoring of your kidney function. Your kidney function remained within normal limits. Your liver function testing was slightly abnormal however this may have been falsely abnormal due to the muscle
breakdown product in your blood. You developed muscle breakdown likely due to weakness from a urinary tract infection for which you were treated with antibiotics. You will be discharged with a prescription for 1 more day of antibiotics to complete
a total 5-day course. Your rhabdomyolysis is improving but not completely resolved. It is important that you drink plenty of fluids when you are at home in order to continue avoiding kidney injury. You will need to have labs repeated in 2 to 3
days to monitor your CK (creatinine kinase, muscle breakdown product), creatinine (measure of your kidney function) levels, liver function. You had some elevated inflammatory markers on labs during this admission which is likely due to your urinary
tract infection. However it is possible that your presenting symptoms and elevated inflammatory markers are due to an autoimmune muscle disease for which steroids can be helpful. You were given a dose of steroids in the hospital. You should
follow-up with your primary care physician to review the results of your lab work and to pursue additional lab work if your blood work does not return to normal. Additional lab work may include an autoimmune panel to check for possible
polymyositis, in which case the treatment would include steroids.
Referrals:
UNKNOWN - PT DOES,NOT KNOW [Family Provider]
Prescriptions:
New
(DME) basic metabolic panel
See Rx Instructions .Route .MEDSUPPLY Qty: 1 0RF
Rx Instructions:
Get blood work in 2 to 3 days from hospital discharge to monitor kidney function
(DME) creatinine kinase
See Rx Instructions .Route .MEDSUPPLY Qty: 1 0RF
Rx Instructions:
Obtain labs in 2 to 3 days after hospital discharge
(DME) liver function test
See Rx Instructions .Route .MEDSUPPLY Qty: 1 0RF
Rx Instructions:
Obtain labs in 2 to 3 days after hospital discharge
amoxicillin-pot clavulanate 875-125 mg Tablet
1 tab PO Q12 1 Days Qty: 2 0RF
Continued
trazodone 150 mg tablet
300 mg PO HSPRN PRN (Reason: sleep)
bupropion HCl 300 mg tablet extended release 24 hr
300 mg PO DAILY
lisdexamfetamine [Vyvanse] 30 mg capsule
30 mg PO BID
levocetirizine 5 mg tablet
5 mg PO DAILY
Vraylar 6 mg capsule
6 mg PO DAILY
citalopram [Celexa] 20 mg Tablet
20 mg PO DAILY
lorazepam 0.5 mg Tablet
0.5 mg PO BIDPRN PRN (Reason: anxiety)
lisinopril 2.5 mg Tablet
2.5 mg PO DAILY
Held
potassium chloride 20 mEq tablet extended release
20 meq PO DAILY
Hold Instructions: Hold this medication until you repeat lab work and discussed the results with your primary care physician
Ozempic 0.25 mg or 0.5 mg (2 mg/3 mL) Pen Injector
0.25 mg SC QWEEK
Hold Instructions: Do not continue this medication until follow-up with your prescribing provider
Rx Instructions:
for 4 weeks
Discharge Orders:
Discharge Patient (As Directed); Ordered 04/07/25
Ordered By: Jef Torres
Discharge Date and Time
Print Language: MAORI
--- NOTE | 2025-04-07 14:06 | CM ---
patient seen at bedside
discharge today
IMM explained & signed. In chart
notified liaison [facility]
PLAN: Home with [facility]
Sister in Law to transport
[2025-04-07 15:00] VITALS: BP 158/74
[2025-04-07] MEDS: NSS IV (15:42)
== END 2025-04-07 16:25 | disposition home health service (06) | DRG 565 ==
LOC: 3 WEST ACU 22:29
PROVIDERS: Physician Assistant; ADMITTING PHYSICIAN Hospitalist; ATTENDING PHYSICIAN Internal Medicine; EMERGENCY PHYSICIAN Student in an Organized Health Care Education/Training Program
DX: T79.6XXA Traumatic ischemia of muscle, initial encounter (principal); N39.0 Urinary tract infection, site not specified; I10 Essential (primary) hypertension; E11.9 Type 2 diabetes mellitus without complications; F90.9 Attention-deficit hyperactivity disorder, unspecified type; F32.A Depression, unspecified; F41.9 Anxiety disorder, unspecified; Z87.891 Personal history of nicotine dependence; E87.6 Hypokalemia; E83.42 Hypomagnesemia; W19.XXXA Unspecified fall, initial encounter
CPT/HCPCS: 70450; 73564; 80053; 81003; 81015; 82550; 82962; 83036; 83605; 83735; 84443; 85025; 85652; 86140; 87040; 87077; 87086; 87186; 93005; 96361; 96374; 97116; 97163; 97167; 97530; 97535; 99285